=== PATIENT | male | born 1955 | race Two or more races ===

== ENCOUNTER 2020-03-14 13:45 | Emergency (ER) | payer MEDICARE, OTHER, SELFPAY ==
[2020-03-14 14:10] VITALS: BP 180/67; PULSE 64; RESP 16; TEMP 36.9; O2SAT 97; BMI 27.4
--- NOTE | 2020-03-14 14:56 | XR_ITS ---
EXAMINATION: XR TOES, LEFT CLINICAL INFORMATION: Left toe cellulitis. Question osteomyelitis. COMPARISON: 08/18/2016 TECHNIQUE: 3 views of the left toes were obtained. FINDINGS: There is no fracture or dislocation. No osseous erosion. Joint spaces are maintained. The soft tissues are unremarkable. No soft tissue gas. XR/XR toe LT min 2V IMPRESSION: No acute osseous abnormality. No osseous erosion.
[2020-03-14 15:37] LABS: Basophils Percent Auto 0.5 % (0-2); Eosinophils Absolute Auto 0.4 X10*3/uL (0.0-0.4); Eosinophils Percent Auto 4.4 % (0-4); Hematocrit 41.8 % (42-52); Hemoglobin 13.5 g/dl (14.0-18.0); Imm Gran Abs Auto 0.03 X10*3/uL (0.00-0.03); Imm Gran Pct Auto 0.4 % (0.0-0.4); Lymphocytes Absolute Auto 1.6 X10*3/uL (1.2-4.9); Lymphocytes Percent Auto 19.4 % (20-40); MANUAL DIFF FLAG NO; Mean Corpuscular HGB Conc 32.3 g/dl (31.0-36.0); Mean Corpuscular Hemoglobin 26.8 pg (27.0-33.0); Mean Corpuscular Volume 82.9 fL (80-98); Mean Platelet Volume 11.2 fL (9.4-12.4); Monocytes Absolute Auto 0.6 X10*3/uL (0.1-1.2); Neutrophils Absolute Auto 5.6 X10*3/uL (2.0-8.3); Neutrophils Percent Auto 68.3 % (45-73); Platelet Count 182 X10*3/uL (160-400); Red Blood Count 5.04 X10*6/uL (4.60-5.80); Red Cell Distribution Width 13.6 % (11.0-16.0); White Blood Count 8.2 X10*3/uL (4.8-10.8)
[2020-03-14] MEDS: oxyCODONE HCl Immed Release 5 MG TABLET PO (15:53)
[2020-03-14 16:00] LABS: C Reactive Protein 0.29 mg/dL (< or = 0.50)
[2020-03-14 16:10] LABS: Alanine Aminotransferase 12 U/L (0-40); Albumin Level 4.4 g/dL (3.5-5.0); Alkaline Phosphatase 79 U/L (39-117); Anion Gap 14 (12-20); Aspartate Amino Transferase 17 U/L (5-37); Bilirubin Direct 0.2 mg/dL (0.0-0.5); Bilirubin Total 0.4 mg/dL (0.0-1.0); Blood Urea Nitrogen 17 mg/dL (9-16); Calcium 9.5 mg/dL (8.4-10.2); Carbon Dioxide 28 mmol/L (22-29); Chloride 100 mmol/L (96-108); Creatinine Clr Calc Pharmacy 67.4; Estimated Glomerular Filt Rate > 60; Glucose Random 156 mg/dL (60-115); Magnesium 1.4 mg/dL (1.6-2.6); Potassium 4.7 mmol/l (3.3-5.1); Sodium 137 mmol/L (135-145); Total Protein 7.8 g/dL (6.5-8.0)
--- NOTE | 2020-03-14 16:21 | ED_ITS ---
HPI - Extremity Injury (Lower) General Chief Complaint: Extremity Injury, Lower Stated Complaint: lt ft infection Time Seen by Provider: 03/14/20 14:55 Source: patient Mode of arrival: ambulatory Limitations: no limitations History of Present Illness HPI Narrative: 65yoM c PMHx of diabetes, coronary artery disease that was stented and open toe wound presenting to the ED with complaints of worsening pain to the open toe wound. Reports he seen a doctor approximately 1-2 weeks ago who removed his nail and he reports that now he feels worsening symptoms despite taking tramadol as prescribed. He also reports that he was prescribed 2 bottles of Keflex which he completed and still no improvement. Denies any feve rs or any other symptoms complaints or concerns at this time. Related Data Previous Rx's Medication Instructions Recorded cephalexin [Keflex] 500 mg PO Q6H 10 Days #40 cap 03/14/20 doxycycline monohydrate 100 mg PO BID 10 Days #20 cap 03/14/20 oxycodone-acetaminophen [Percocet] 1 tab PO Q6H PRN #15 tab 03/14/20 Allergies Allergy/AdvReac Type Severity Reaction Status Date / Time No Known Allergies Allergy Unverified 12/13/19 15:31 [No Known Allergies*] Review of Systems Review of Systems: Constitutional :No Fever, No Chills, No Fatigue, No Malaise Musculoskeletal : + joint painswelling, No Myalgias Skin : + Skin Wound, No rash Neuro : No Weakness, No Numbness, No Paresthesias Heme/Lymph: No Lymphadenopathy Yes all other systems are reviewed and are negat [facility] Past Medical History Attestation statement: The following information was validated with the patient. Medical History Diabetes Surgical History Stented coronary artery Social History Social History Advance Directives: No Advance Directives Information Provided: No Physical Exam Vital Signs: Vital Signs: Last Vital Signs Temp 98.4 F 03/14/20 14:10 Pulse 64 03/14/20 14:10 Resp 16 03/14/20 14:10 BP 180/67 H 03/14/20 14:10 Pulse Ox 97 03/14/20 14:10 Body Mass Index 27.4 vital signs have been reviewed as normal and appeared to be correct. Blood pressure normal. Heart rate normal. Respiration rate normal. Temperature normal. Oxygen saturation normal. Appearance: Alert. Oriented X3. No acute distress. Head: Normal external exam. Normocephalic. Eyes: PERRLA. EOMI. Conjunctiva and sclera normal. Eyelids normal. ENT: Pharynx normal. Uvula midline. Moist mucous membranes. Neck: Normal inspection. Neck supple. FROM. No adenopathy. No meningeal signs. CVS: Normal heart rate and rhythm. Heart sound normal. No murmurs noted. Pulses normal throughout. Respiratory: No respiratory distress. Painless inspiration. Breath sounds normal. No wheezes/rales/rhonchi noted. Chest nontender. No accessory muscle usage noted or decreased air movement noted. Back: Full range of motion noted. Skin: Skin warm and dry. Normal skin color. Normal skin turgor. No rashes/ lesions/lacerations noted. Extremities: No lower extremity edema. Left 4th toe c nail removed c wound c moderate tenderness to palpation and erythema. No fluctuance or streaking noted or foreign bodies. Otherwise all other Extremities exhibit normal range of motion and nontender. Neuro: Oriented X 3. No motor deficit. No sensory deficit. Reflexes normal. Course Course Course Narrative: 16PM 65yoM c PMHx of diabetes, coronary artery disease that was stented and open toe wound presenting to the ED with complaints of worsening pain to the open toe wound despite taking 2 courses of Keflex. - Concern for osteomyelitis versus cellulitis. - Plan: Labs, Blood cultures, and x-ray. Will also give 5 mg of oxycodone. Reevaluation(s) Reevaluation #1: - patient magnesium level at 1.4 otherwise all other labs are within normal limits.X-ray of left foot/toe revealed no osseous erosion therefore not consistent with osteomyelitis at this time and no soft tissue gas. - therefore will replace the patient's magnesium with p.o. magnesium and instructions to follow-up with his primary care provider to have his levels recheck in a few days will start the patient on doxycycline and another course of Keflex and give a short script for pain medication instructions to return if any new or worsening symptoms with a referral to Wound Care, licensed therapist and will involve Case Management for [facility]. Patient understands and agrees with plan. Time: 17:29 MDM - Extremity Injury (Lower) Medical Records Attestation: I reviewed the patient's medical records. Lab Data Attestation: I reviewed the patient's lab results. Result diagrams: 03/14/20 15:29 03/14/20 15:29 Labs: Lab Results 03/14/20 03/14/20 03/14/20 Range/Units 15:28 15:28 15:29 WBC 8.2 (4.8-10.8) X10*3/uL RBC 5.04 (4.60-5.80) X10*6/uL Hgb 13.5 L (14.0-18.0) g/dl Hct 41.8 L (42-52) % MCV 82.9 (80-98) fL MCH 26.8 L (27.0-33.0) pg MCHC 32.3 (31.0-36.0) g/dl RDW 13.6 (11.0-16.0) % Plt Count 182 (160-400) X10*3/uL MPV 11.2 (9.4-12.4) fL Immature Gran % (Auto) 0.4 (0.0-0.4) % Neut % (Auto) 68.3 (45-73) % Lymph % (Auto) 19.4 L (20-40) % [place] % (Auto) 7.0 (2-11) % Eos % (Auto) 4.4 H (0-4) % Baso % (Auto) 0.5 (0-2) % Lymph # (Auto) 1.6 (1.2-4.9) X10*3/uL [place] # (Auto) 0.6 (0.1-1.2) X10*3/uL Eos # (Auto) 0.4 (0.0-0.4) X10*3/uL Baso # (Auto) 0.0 (0.0-0.2) X10*3/uL Abs Immat Gran (auto) 0.03 (0.00-0.03) X10*3/uL Absolute Neuts (auto) 5.6 (2.0-8.3) X10*3/uL Absolute Nucleated RBC 0.000 (0.0-0.012) X10*3/uL Nucleated RBC % (auto) 0.0 (0.0-0.2) /100WBC ESR 10 (0-15) MM/HR Hold Blue Top Sodium (135-145) mmol/L Potassium (3.3-5.1) mmol/l Chloride (96-108) mmol/L Carbon Dioxide (22-29) mmol/L Anion Gap (12-20) BUN (9-16) mg/dL Creatinine (0.5-1.4) mg/dL Estim Creat Clear Calc Estimated GFR Random Glucose (60-115) mg/dL Calcium (8.4-10.2) mg/dL Magnesium (1.6-2.6) mg/dL Total Bilirubin (0.0-1.0) mg/dL Direct Bilirubin (0.0-0.5) mg/dL AST (5-37) U/L ALT (0-40) U/L Alkaline Phosphatase (39-117) U/L C-Reactive Protein 0.29 (< or = 0.50) mg/dL Total Protein (6.5-8.0) g/dL Albumin (3.5-5.0) g/dL 03/14/20 03/14/20 Range/Units 15:29 15:29 WBC (4.8-10.8) X10*3/uL RBC (4.60-5.80) X10*6/uL Hgb (14.0-18.0) g/dl Hct (42-52) % MCV (80-98) fL MCH (27.0-33.0) pg MCHC (31.0-36.0) g/dl RDW (11.0-16.0) % Plt Count (160-400) X10*3/uL MPV (9.4-12.4) fL Immature Gran % (Auto) (0.0-0.4) % Neut % (Auto) (45-73) % Lymph % (Auto) (20-40) % [place] % (Auto) (2-11) % Eos % (Auto) (0-4) % Baso % (Auto) (0-2) % Lymph # (Auto) (1.2-4.9) X10*3/uL [place] # (Auto) (0.1-1.2) X10*3/uL Eos # (Auto) (0.0-0.4) X10*3/uL Baso # (Auto) (0.0-0.2) X10*3/uL Abs Immat Gran (auto) (0.00-0.03) X10*3/uL Absolute Neuts (auto) (2.0-8.3) X10*3/uL Absolute Nucleated RBC (0.0-0.012) X10*3/uL Nucleated RBC % (auto) (0.0-0.2) /100WBC ESR (0-15) MM/HR Hold Blue Top SEE NOTE Sodium 137 (135-145) mmol/L Potassium 4.7 (3.3-5.1) mmol/l Chloride 100 (96-108) mmol/L Carbon Dioxide 28 (22-29) mmol/L Anion Gap 14 (12-20) BUN 17 H (9-16) mg/dL Creatinine 1.01 (0.5-1.4) mg/dL Estim Creat Clear Calc 67.4 Estimated GFR > 60 Random Glucose 156 H (60-115) mg/dL Calcium 9.5 (8.4-10.2) mg/dL Magnesium 1.4 L* (1.6-2.6) mg/dL Total Bilirubin 0.4 (0.0-1.0) mg/dL Direct Bilirubin 0.2 (0.0-0.5) mg/dL AST 17 (5-37) U/L ALT 12 (0-40) U/L Alkaline Phosphatase 79 (39-117) U/L C-Reactive Protein (< or = 0.50) mg/dL Total Protein 7.8 (6.5-8.0) g/dL Albumin 4.4 (3.5-5.0) g/dL Imaging Data Left foot xray: Attestation: I personally reviewed and interpreted this imaging study as follows: Radiologist's impression: IMPRESSION: No acute osseous abnormality. No osseous erosion. Discharge Plan Discharge Clinical Impression: Hypomagnesemia Cellulitis Qualifiers: Site of cellulitis: extremity Site of cellulitis of extremity: toe Laterality: left Qualified Code(s): L03.032 - Cellulitis of left toe Open toe wound Qualifiers: Encounter type: initial encounter Qualified Code(s): S91.109A - Unspecified open wound of unspecified toe(s) without damage to nail, initial encounter Patient Disposition: Home, Self-Care Instructions: Wound Infection (ED), Cellulitis (ED), Wound Healing and Your Diet (ED), Hypomagnesemia (ED), Acute Wounds (ED) Prescriptions: New doxycycline monohydrate 100 mg capsule 100 mg PO BID 10 Days Qty: 20 RF: 0 cephalexin [Keflex] 500 mg capsule 500 mg PO Q6H 10 Days Qty: 40 RF: 0 oxycodone-acetaminophen [Percocet] 5-325 mg tablet 1 tab PO Q6H PRN (Reason: pain) Qty: 15 RF: 0 Referrals: Noemy Squires MD [Primary Care Provider] - 2 days (Recheck magnesium within 2-3 days) Saritha Wyman PA [Physician Pest Control Applicator] - 2 days Freeman Anderson [Physician] - 2 days Stand Alone Forms: Work/School Release Print Language: Lithuanian
[2020-03-14 16:31] LABS: Erythrocyte Sedimentation Rate 10 MM/HR (0-15)
[2020-03-14] MEDS: Doxycycline Hyclate 100 MG in 0.9 % Sodium Chloride 250 ML 166.67 MG IV (16:55)
[2020-03-14] MEDS: Magnesium Oxide 400 MG TABLET PO (16:57)
--- NOTE | 2020-03-15 10:54 | MHC.CM.ED ---
Patient already discharged from ER. Received consult requesting referral to [facility] from RICK Callejas. [facility]. Britta CABRERA aware. Face to face completed and signed.
== END 2020-03-14 18:45 | disposition home or self-care (01) ==
PROVIDERS: Physician Assistant Medical; Emergency Provider Emergency Medicine Emergency Medical Services; PCP Internal Medicine
DX: L03.032 Cellulitis of left toe (principal); S91.205A Unspecified open wound of left lesser toe(s) with damage to nail, initial encounter; X58.XXXA Exposure to other specified factors, initial encounter; E83.42 Hypomagnesemia; E11.9 Type 2 diabetes mellitus without complications; Y93.9 Activity, unspecified; Y92.9 Unspecified place or not applicable; Y99.9 Unspecified external cause status
CPT/HCPCS: 36415; 73660; 80048; 80076; 83735; 85025; 85652; 86140; 87040; 96365; 96366; 99283; 99284

== ENCOUNTER 2020-04-08 10:10 | Outpatient (RCR) | payer MEDICARE, OTHER, SELFPAY | END 2020-04-24 15:17 | disposition home or self-care (01) | LOC: HO.WCC 10:10 | PROVIDERS: Visit Provider Physician Assistant | DX: E11.621 Type 2 diabetes mellitus with foot ulcer (principal); E11.51 Type 2 diabetes mellitus with diabetic peripheral angiopathy without gangrene; I70.245 Atherosclerosis of native arteries of left leg with ulceration of other part of foot; L97.521 Non-pressure chronic ulcer of other part of left foot limited to breakdown of skin; E11.65 Type 2 diabetes mellitus with hyperglycemia; E11.40 Type 2 diabetes mellitus with diabetic neuropathy, unspecified; I10 Essential (primary) hypertension; Z94.0 Kidney transplant status; Z79.899 Other long term (current) drug therapy; Z95.9 Presence of cardiac and vascular implant and graft, unspecified | CPT/HCPCS: 97597; 99213; 99214 ==

== ENCOUNTER 2020-04-22 13:20 | Outpatient (REF) | payer MEDICARE, OTHER, SELFPAY ==
--- NOTE | 2020-04-22 | US_ITS ---
EXAMINATION: ULTRASOUND ARTERIAL LEFT LOWER EXTREMITY EXAMINATIO CLINICAL INFORMATION: Foot ulcer TECHNIQUE: Left lower extremity duplex Doppler techniques with wave form analysis and measurement of velocities in the common femoral, profunda femoral, superficial femoral, popliteal and tibial arteries. The study was performed only at rest. COMPARISON: None FINDINGS: * LEFT LEG: Left direct duplex Doppler findings: There is evidence of atherosclerotic disease with vessel wall calcification. The left superficial femoral artery is occluded. The posterior tibial artery is severely diseased with luminal narrowing. Common femoral artery: 153 cm/s, Diastolic flow reversal: Yes * Superficial femoral artery: The left proximal and mid superficial femoral artery is occluded. There is monophasic flow seen in the distal left superficial femoral artery which appears to reconstitute from a collateral. Peak systolic velocity is 37 cm/s with monophasic flow. * Popliteal artery: 66 cm/s, Diastolic flow reversal: No * Posterior tibial artery: 79 cm/s, Diastolic flow reversal: No * Profunda: Peak systolic velocity 212 cm/s. Diastolic flow reversal: No US/US arterial duplex LE LT IMPRESSION: Occluded left proximal and mid superficial femoral artery. The distal left superficial femoral artery appears to reconstitute via collateral. Patent popliteal and severely diseased posterior tibial artery. Elevated peak systolic velocity in the left profunda.
== END 2020-04-22 13:21 | disposition home or self-care (01) ==
LOC: HO.US 13:20
PROVIDERS: Visit Provider Physician Assistant
DX: I70.245 Atherosclerosis of native arteries of left leg with ulceration of other part of foot (principal)
CPT/HCPCS: 93926

== ENCOUNTER 2020-08-21 22:07 | Emergency (ER) | payer MEDICARE, BC, SELFPAY ==
--- NOTE | ~2020-08-21 | CT_ITS ---
EXAMINATION: CT HEAD WITHOUT CONTRAST CLINICAL INFORMATION: Right MCA acute CVA. COMPARISON: CT IAC 09/18/2012 TECHNIQUE: Contiguous axial imaging was performed from the skull base to vertex without intravenous administration of contrast. This CT examination was performed using dose optimization techniques as appropriate, variously including the following: *Automated exposure control *Adjustment of mA and/or kV according to patient size (this includes techniques or standardized protocols for targeted exams where dose is matched to indication/reason for exam; i.e. extremities or head) *Use of iterative reconstruction technique DLP: 1237 mGy-cm FINDINGS: There is no evidence of intra-axial, extra-axial bleed, masses or midline shift. There is no acute infarction. However there is a subtle hypodensity in the left basal ganglia/internal capsule likely lacunar infarct of indeterminate age. No abnormal mass effect or midline shift is seen. Mcallister to white matter differentiation is well preserved. No extra-axial fluid collections are identified. The ventricles are normal in size. There is no abnormal attenuation within the brain parenchyma. The osseous structures and soft tissues are normal. The mastoid air cells and visualized portions of the paranasal sinuses are well aerated. CT/CT head for stroke IMPRESSION: No acute intracranial process seen. Small focal lacunar infarct left anterior limb internal capsule of indeterminate age. Results were called by phone immediately to Dr. Dayton Mcpherson in the ED at 10:22 PM
--- NOTE | 2020-08-21 22:11 | ED.NEUROSD ---
HPI - Neuro Symptoms/Deficit General Chief Complaint: Neuro Symptoms/Deficit Stated Complaint: STROKE Time Seen by Provider: 08/21/20 22:10 Source: patient and EMS Mode of arrival: EMS Limitations: no limitations History of Present Illness HPI Narrative: Patient is 65 years old male with past medical history of end-stage renal disease secondary to diabetic nephropathy status post LUKT 2015, CAD status post CABG 2012, right carotid endarterectomy, HFpEF, treated hepatitis-C, peripheral artery disease with gangrene of left foot status post thrombectomy of left femoral to peroneal artery bypass done on 08/20 1 discharge while at [facility] till 14:00 today and discharged went home to his sister's house at 18:00 had a long day and at 20:00 was feeling slurred speech and weak so he took 10 units of Humalog insulin thinking of moving blood sugar is high. When EMS reached blood sugar was 65. Patient was feeling overall weak more on the left side EMS noticed left facial droop on arrival patient speech was back to normal and no focal deficit noticed no facial dissymmetry on arrival Related Data Previous Rx's Medication Instructions Recorded cephalexin [Keflex] 500 mg PO Q6H 10 Days #40 cap 03/14/20 doxycycline monohydrate 100 mg PO BID 10 Days #20 cap 03/14/20 oxycodone-acetaminophen [Percocet] 1 tab PO Q6H PRN #15 tab 03/14/20 Allergies Allergy/AdvReac Type Severity Reaction Status Date / Time No Known Allergies Allergy Unverified 12/13/19 15:31 [No Known Allergies*] Review of Systems Review of Systems: Constitutional : No Weight loss, No Fever, No Chills ENT/Mouth : No sore throat, No Rhinorrhea Eyes: No Eye Pain, No Swelling Cardiovascular : No Chest Pain, no palpitations Respiratory : No Cough, No Sputum, no shortness of breath Gastrointestinal : no Nausea, No Vomiting, No Diarrhea, No abdominal Pain, no black stools Genitourinary : No Dysuria, No Urinary Frequency Musculoskeletal : No joint pain, No Myalgias, No Joint Swelling Skin : No Skin Lesions, No rash Neuro : ++ Weakness, No Numbness, No Dizziness, No Headache Psych : No Anxiety/Panic, No Depression Heme/Lymph: No Bruising, No Lymphadenopathy Endocrine : No Polyuria, No Polydipsia All other systems reviewed and are negative PMFSH Past Medical History Medical History Diabetes Surgical History Stented coronary artery Social History Social History Advance Directives: No Advance Directives Information Provided: No Physical Exam Vital Signs: Vital Signs: Last Vital Signs Temp 98.2 F 08/21/20 22:22 Pulse 100 08/22/20 00:32 Resp 16 08/22/20 00:32 BP 127/72 08/22/20 00:32 Pulse Ox 93 08/22/20 00:32 Body Mass Index 29.0 Appearance: Alert. Oriented X3. No acute distress. Eyes: PERRLA, No Nystagmus ENT: Pharynx normal. Oral Mucosa moist Neck: Normal inspection. Neck supple. CVS: Normal heart rate and rhythm. Pulses normal. Respiratory: No respiratory distress. Equal air entry bilateral, no wheezing/rales/rhonchi Abdomen: Soft and nontender. Bowel sounds are present, no mass palpable, no CVA tenderness Skin: Skin warm and dry. Normal skin color. Normal skin turgor. Extremitie: No calf tenderness left leg in Pablo wrap dressing slight edema Neuro: Oriented X 3. No motor deficit. No sensory deficit.No cerebellar signs , cranial nerves II-XII intact no pronator drift speech is normal no facial asymmetry MDM - Neuro Symptoms/Deficit MDM Narrative Medical decision making narrative: Patient with acute confusion with weakness according to family more generalized than one-sided patient to get x-ray Humalog 10 units and blood sugar dropped further in the ER patient had food p.o. fluids and half ampule of dextrose blood sugar now is 121 and patient is feeling much better back to baseline will discharge patient home. CT scan of the head is negative for any acute infarct Lab Data Attestation: I reviewed the patient's lab results. Result diagrams: 08/21/20 22:39 08/21/20 22:39 Labs: Lab Results 08/21/20 08/21/20 08/21/20 Range/Units 22:18 22:39 22:39 WBC 9.3 (4.8-10.8) X10*3/uL RBC 2.82 L D (4.60-5.80) X10*6/uL Hgb 7.8 L D (14.0-18.0) g/dl Hct 24.1 L D (42-52) % MCV 85.5 (80-98) fL MCH 27.7 (27.0-33.0) pg MCHC 32.4 (31.0-36.0) g/dl RDW 15.1 (11.0-16.0) % Plt Count 286 D (160-400) X10*3/uL MPV 10.7 (9.4-12.4) fL Immature Gran % (Auto) 1.7 H (0.0-0.4) % Neut % (Auto) 67.2 (45-73) % Lymph % (Auto) 19.7 L (20-40) % [place] % (Auto) 9.1 (2-11) % Eos % (Auto) 2.2 (0-4) % Baso % (Auto) 0.1 (0-2) % Lymph # (Auto) 1.8 (1.2-4.9) X10*3/uL [place] # (Auto) 0.8 (0.1-1.2) X10*3/uL Eos # (Auto) 0.2 (0.0-0.4) X10*3/uL Baso # (Auto) 0.0 (0.0-0.2) X10*3/uL Abs Immat Gran (auto) 0.16 H (0.00-0.03) X10*3/uL Absolute Neuts (auto) 6.2 (2.0-8.3) X10*3/uL Absolute Nucleated RBC 0.000 (0.0-0.012) X10*3/uL Nucleated RBC % (auto) 0.0 (0.0-0.2) /100WBC PT (10.8-13.0) SEC INR (0.9-1.1) APTT (24.1-38.0) SEC Coag Specimen Comment Sodium 138 (135-145) mmol/L Potassium 3.7 (3.3-5.1) mmol/L Chloride 103 (96-108) mmol/L Carbon Dioxide 24 (22-29) mmol/L Anion Gap 15 (12-20) BUN 18 H (9-16) mg/dL Creatinine 0.83 (0.5-1.4) mg/dL Estim Creat Clear Calc 84.2 Estimated GFR > 60 POC Glucose 65 (60-115) mg/dL Random Glucose 57 L* (60-115) mg/dL Calcium 8.8 D (8.4-10.2) mg/dL Troponin I High Sens (<3.5-35.0) ng/L 08/21/20 08/21/20 08/21/20 Range/Units 22:39 22:39 22:40 WBC (4.8-10.8) X10*3/uL RBC (4.60-5.80) X10*6/uL Hgb (14.0-18.0) g/dl Hct (42-52) % MCV (80-98) fL MCH (27.0-33.0) pg MCHC (31.0-36.0) g/dl RDW (11.0-16.0) % Plt Count (160-400) X10*3/uL MPV (9.4-12.4) fL Immature Gran % (Auto) (0.0-0.4) % Neut % (Auto) (45-73) % Lymph % (Auto) (20-40) % [place] % (Auto) (2-11) % Eos % (Auto) (0-4) % Baso % (Auto) (0-2) % Lymph # (Auto) (1.2-4.9) X10*3/uL [place] # (Auto) (0.1-1.2) X10*3/uL Eos # (Auto) (0.0-0.4) X10*3/uL Baso # (Auto) (0.0-0.2) X10*3/uL Abs Immat Gran (auto) (0.00-0.03) X10*3/uL Absolute Neuts (auto) (2.0-8.3) X10*3/uL Absolute Nucleated RBC (0.0-0.012) X10*3/uL Nucleated RBC % (auto) (0.0-0.2) /100WBC PT 12.4 (10.8-13.0) SEC INR 1.0 (0.9-1.1) APTT 29.2 (24.1-38.0) SEC Coag Specimen Comment DELAY Sodium (135-145) mmol/L Potassium (3.3-5.1) mmol/L Chloride (96-108) mmol/L Carbon Dioxide (22-29) mmol/L Anion Gap (12-20) BUN (9-16) mg/dL Creatinine (0.5-1.4) mg/dL Estim Creat Clear Calc Estimated GFR POC Glucose 58 L* (60-115) mg/dL Random Glucose (60-115) mg/dL Calcium (8.4-10.2) mg/dL Troponin I High Sens 54.1 H* (<3.5-35.0) ng/L 08/21/20 08/22/20 08/22/20 Range/Units 22:54 00:14 00:52 WBC (4.8-10.8) X10*3/uL RBC (4.60-5.80) X10*6/uL Hgb (14.0-18.0) g/dl Hct (42-52) % MCV (80-98) fL MCH (27.0-33.0) pg MCHC (31.0-36.0) g/dl RDW (11.0-16.0) % Plt Count (160-400) X10*3/uL MPV (9.4-12.4) fL Immature Gran % (Auto) (0.0-0.4) % Neut % (Auto) (45-73) % Lymph % (Auto) (20-40) % [place] % (Auto) (2-11) % Eos % (Auto) (0-4) % Baso % (Auto) (0-2) % Lymph # (Auto) (1.2-4.9) X10*3/uL [place] # (Auto) (0.1-1.2) X10*3/uL Eos # (Auto) (0.0-0.4) X10*3/uL Baso # (Auto) (0.0-0.2) X10*3/uL Abs Immat Gran (auto) (0.00-0.03) X10*3/uL Absolute Neuts (auto) (2.0-8.3) X10*3/uL Absolute Nucleated RBC (0.0-0.012) X10*3/uL Nucleated RBC % (auto) (0.0-0.2) /100WBC PT (10.8-13.0) SEC INR (0.9-1.1) APTT (24.1-38.0) SEC Coag Specimen Comment Sodium (135-145) mmol/L Potassium (3.3-5.1) mmol/L Chloride (96-108) mmol/L Carbon Dioxide (22-29) mmol/L Anion Gap (12-20) BUN (9-16) mg/dL Creatinine (0.5-1.4) mg/dL Estim Creat Clear Calc Estimated GFR POC Glucose 80 74 77 (60-115) mg/dL Random Glucose (60-115) mg/dL Calcium (8.4-10.2) mg/dL Troponin I High Sens (<3.5-35.0) ng/L 08/22/20 Range/Units 01:13 WBC (4.8-10.8) X10*3/uL RBC (4.60-5.80) X10*6/uL Hgb (14.0-18.0) g/dl Hct (42-52) % MCV (80-98) fL MCH (27.0-33.0) pg MCHC (31.0-36.0) g/dl RDW (11.0-16.0) % Plt Count (160-400) X10*3/uL MPV (9.4-12.4) fL Immature Gran % (Auto) (0.0-0.4) % Neut % (Auto) (45-73) % Lymph % (Auto) (20-40) % [place] % (Auto) (2-11) % Eos % (Auto) (0-4) % Baso % (Auto) (0-2) % Lymph # (Auto) (1.2-4.9) X10*3/uL [place] # (Auto) (0.1-1.2) X10*3/uL Eos # (Auto) (0.0-0.4) X10*3/uL Baso # (Auto) (0.0-0.2) X10*3/uL Abs Immat Gran (auto) (0.00-0.03) X10*3/uL Absolute Neuts (auto) (2.0-8.3) X10*3/uL Absolute Nucleated RBC (0.0-0.012) X10*3/uL Nucleated RBC % (auto) (0.0-0.2) /100WBC PT (10.8-13.0) SEC INR (0.9-1.1) APTT (24.1-38.0) SEC Coag Specimen Comment Sodium (135-145) mmol/L Potassium (3.3-5.1) mmol/L Chloride (96-108) mmol/L Carbon Dioxide (22-29) mmol/L Anion Gap (12-20) BUN (9-16) mg/dL Creatinine (0.5-1.4) mg/dL Estim Creat Clear Calc Estimated GFR POC Glucose 121 H (60-115) mg/dL Random Glucose (60-115) mg/dL Calcium (8.4-10.2) mg/dL Troponin I High Sens (<3.5-35.0) ng/L ECG Data Attestation: I personally reviewed and interpreted this ECG as follows: Interpretation: Normal sinus rhythm LVH with strain pattern heart rate 93 beats per minute no acute ST T wave changes no acute ischemia NIH Stroke Scale Internal: Initial- Upon Arrival Level of Consciousness: Alert Level of Consciousness Questions: Answers both questions correctly Level of Consciousness Commands: Performs both tasks correctly Best Gaze: Normal Visual: No visual loss Facial Palsy: Normal Motor Arm (Right): No drift Motor Arm (Left): No drift Motor Leg (Right): No drift Motor Leg (Left): No drift Limb Ataxia: Absent Sensory: Normal Best Language: No aphasia Dysarthia: Normal Extinction and Inattention: No abnormality Score: 0 Discharge Plan Discharge Clinical Impression: Hypoglycemia associated with diabetes Patient Disposition: Home, Self-Care Instructions: Hypoglycemia in a Person with Diabetes (ED) Additional Instructions: Eat well on time Check blood sugar every 6 hours for next 24 hours Do not take insulin if it is less than 100 Prescriptions: No Action doxycycline monohydrate 100 mg capsule 100 mg PO BID 10 Days Qty: 20 RF: 0 cephalexin [Keflex] 500 mg capsule 500 mg PO Q6H 10 Days Qty: 40 RF: 0 oxycodone-acetaminophen [Percocet] 5-325 mg tablet 1 tab PO Q6H PRN (Reason: pain) Qty: 15 RF: 0
--- NOTE | 2020-08-21 22:12 | ECG_ITS ---
Test Reason : STROKE PROTOCOL Blood Pressure : / mmHG Vent. Rate : 093 BPM Atrial Rate : 093 BPM P-R Int : 132 ms QRS Dur : 076 ms QT Int : 324 ms P-R-T Axes : 036 -03 175 degrees QTc Int : 402 ms Sinus rhythm with occasional Premature ventricular complexes Left ventricular hypertrophy with repolarization abnormality Abnormal ECG When compared with ECG of 14-JUN-2002 03:47, Premature ventricular complexes are now Present ST now depressed in Anterior leads ST no longer elevated in Lateral leads T wave inversion now evident in Anterolateral leads Referred By: Dayton Mcpherson Electronically Signed By:ANGEL LLAMAS
[2020-08-21 22:22] VITALS: BP 124/62; PULSE 93; RESP 16; TEMP 36.8; O2SAT 96; BMI 29.0
[2020-08-21 22:45] LABS: MANUAL DIFF FLAG NO
[2020-08-21 22:50] LABS: Basophils Percent Auto 0.1 % (0-2); Eosinophils Absolute Auto 0.2 X10*3/uL (0.0-0.4); Eosinophils Percent Auto 2.2 % (0-4); Hematocrit 24.1 % (42-52); Hemoglobin 7.8 g/dl (14.0-18.0); Imm Gran Abs Auto 0.16 X10*3/uL (0.00-0.03); Imm Gran Pct Auto 1.7 % (0.0-0.4); Lymphocytes Absolute Auto 1.8 X10*3/uL (1.2-4.9); Lymphocytes Percent Auto 19.7 % (20-40); Mean Corpuscular HGB Conc 32.4 g/dl (31.0-36.0); Mean Corpuscular Hemoglobin 27.7 pg (27.0-33.0); Mean Corpuscular Volume 85.5 fL (80-98); Mean Platelet Volume 10.7 fL (9.4-12.4); Monocytes Absolute Auto 0.8 X10*3/uL (0.1-1.2); Monocytes Percent Auto 9.1 % (2-11); Neutrophils Absolute Auto 6.2 X10*3/uL (2.0-8.3); Neutrophils Percent Auto 67.2 % (45-73); Platelet Count 286 X10*3/uL (160-400); Red Blood Count 2.82 X10*6/uL (4.60-5.80); Red Cell Distribution Width 15.1 % (11.0-16.0); White Blood Count 9.3 X10*3/uL (4.8-10.8)
--- NOTE | 2020-08-21 22:58 | PC.NURSE ---
Addendum entered by Muriel Leos 08/21/20 23:04: Correction. Pt states he took 10 units of Humalog @ 1999. Original Note: IV established, labs obtained. Pt explains that while at his sisters @ 1800, his speech became slurred and he started feeling unwell. Pt states tht he tried to check his POC but was unable to work his glucometer, he assumed his blood sugar was high so he gave himself 10 units of fast acting insulin. Pts condition continued to worsen, family calling EMS. POC upon arrival noted to be 65 mg/dl. Pt provided with food/drink, blood sugar increased to 80 mg/dl. MD aware. Continue to monitor.
[2020-08-21 23:00] LABS: Glucose, Whole Blood 80 mg/dL (60-115)
[2020-08-21 23:00] LABS: Glucose, Whole Blood 58 mg/dL (60-115)
[2020-08-21 23:00] LABS: Glucose, Whole Blood 65 mg/dL (60-115)
--- NOTE | 2020-08-21 23:00 | PC.NURSE ---
Speech noted to be clear upon arrival by EMS despite borderline hypoglycemia. Pt reports relief of all symptoms at this time including weakness to left arm.
[2020-08-21 23:11] LABS: Anion Gap 15 (12-20); Blood Urea Nitrogen 18 mg/dL (9-16); Calcium 8.8 mg/dL (8.4-10.2); Carbon Dioxide 24 mmol/L (22-29); Chloride 103 mmol/L (96-108); Creatinine Clr Calc Pharmacy 84.2; Estimated Glomerular Filt Rate > 60; Glucose Random 57 mg/dL (60-115); Potassium 3.7 mmol/L (3.3-5.1); Sodium 138 mmol/L (135-145)
[2020-08-21 23:13] LABS: Delay - Coag DELAY
[2020-08-21 23:20] LABS: Prothrombin Time 12.4 SEC (10.8-13.0)
[2020-08-21 23:23] LABS: Partial Thromboplastin Time 29.2 SEC (24.1-38.0)
[2020-08-21 23:39] LABS: Troponin-I High Sensitivity 54.1 ng/L (<3.5-35.0)
[2020-08-22 00:18] LABS: Glucose, Whole Blood 74 mg/dL (60-115)
--- NOTE | 2020-08-22 00:23 | PC.NURSE ---
Repeat POC noted to be 74 mg/dl. MD aware. Pt provided with food/drink. Pt requesting pain medication, reporting 10/10 pain to left leg. Pt aware of plan to DC home.
[2020-08-22] MEDS: Morphine Sulfate 4 MG/ML CARTRIDGE IVPUSH (00:28)
[2020-08-22] MEDS: ondansetron HCL 4 MG/2 ML VIAL IVPUSH (00:28)
[2020-08-22] MEDS: Acetaminophen 325 MG TABLET 650 MG PO (00:28)
[2020-08-22 00:32] VITALS: BP 127/72; PULSE 100; RESP 16; O2SAT 93
--- NOTE | 2020-08-22 00:37 | PC.NURSE ---
Pt medicated per MAY. Pt resting in bed, VSS. Continue to monitor.
[2020-08-22 00:57] LABS: Glucose, Whole Blood 77 mg/dL (60-115)
--- NOTE | 2020-08-22 01:02 | PC.NURSE ---
POC 77 mg/dl. Per MD, verbal order for 1/2 amp D50. Pt medicated per MAY. Pt aware of plan of care, continue to monitor.
[2020-08-22 01:18] LABS: Glucose, Whole Blood 121 mg/dL (60-115)
[2020-08-22 01:29] VITALS: BP 121/80; PULSE 89; RESP 16; O2SAT 98
[2020-08-22 13:52] LABS: Prothrombin Time Whole Bld POC 12.8 sec (11.1-13.5); ~PT, ~INR - Anti Coag Clinic 1.1 (0.9-1.1)
== END 2020-08-22 01:32 | disposition home or self-care (01) ==
PROVIDERS: Emergency Provider Internal Medicine
DX: E11.649 Type 2 diabetes mellitus with hypoglycemia without coma (principal); I25.10 Atherosclerotic heart disease of native coronary artery without angina pectoris; R47.81 Slurred speech; R29.810 Facial weakness; R41.0 Disorientation, unspecified; R29.700 NIHSS score 0; I12.0 Hypertensive chronic kidney disease with stage 5 chronic kidney disease or end stage renal disease; N18.6 End stage renal disease; E11.22 Type 2 diabetes mellitus with diabetic chronic kidney disease; Z79.899 Other long term (current) drug therapy; Z79.4 Long term (current) use of insulin
CPT/HCPCS: 36415; 70450; 80048; 82947; 84484; 85025; 85610; 85730; 93005; 96374; 96375; 99284; J2270; J2405

== ENCOUNTER 2021-06-05 08:48 | Emergency (ER) | payer MEDICARE, BC, SELFPAY ==
--- NOTE | 2021-06-05 | ECG_ITS ---
Test Reason : RIGHT ARM PAIN Blood Pressure : / mmHG Vent. Rate : 063 BPM Atrial Rate : 063 BPM P-R Int : 136 ms QRS Dur : 106 ms QT Int : 418 ms P-R-T Axes : 026 -09 152 degrees QTc Int : 427 ms Normal sinus rhythm Moderate voltage criteria for LVH, may be normal variant ( R in aVL , Andrews product ) T wave abnormality, consider lateral ischemia Abnormal ECG When compared with ECG of 21-AUG-2020 22:32, Premature ventricular complexes are no longer Present ST elevation has replaced ST depression in Anterior leads T wave inversion no longer evident in Anterior leads Referred By: Generic ED Physician Electronically Signed By:SUDHIR BELLA MD
[2021-06-05 09:12] VITALS: BP 152/82; PULSE 71; RESP 14; TEMP 36.7; O2SAT 95; BMI 29.2
[2021-06-05 10:40] VITALS: BP 152/82; PULSE 70; RESP 17; TEMP 36.6
[2021-06-05 10:53] LABS: MANUAL DIFF FLAG NO
[2021-06-05 10:59] LABS: Basophils Percent Auto 0.4 % (0-2); Eosinophils Absolute Auto 0.2 X10*3/uL (0.0-0.4); Eosinophils Percent Auto 2.1 % (0-4); Hematocrit 45.7 % (42.0-52.0); Hemoglobin 14.3 g/dl (14.0-18.0); Imm Gran Abs Auto 0.02 X10*3/uL (0.00-0.03); Imm Gran Pct Auto 0.3 % (0.0-0.4); Lymphocytes Absolute Auto 1.5 X10*3/uL (1.2-4.9); Mean Corpuscular HGB Conc 31.3 g/dl (31.0-36.0); Mean Corpuscular Hemoglobin 25.6 pg (27.0-33.0); Mean Corpuscular Volume 81.9 fL (80.0-98.0); Mean Platelet Volume 10.3 fL (9.4-12.4); Monocytes Absolute Auto 0.6 X10*3/uL (0.1-1.2); Monocytes Percent Auto 7.4 % (2-11); Neutrophils Absolute Auto 5.5 x10*3/uL (2.0-8.3); Neutrophils Percent Auto 70.8 % (45-73); Platelet Count 216 X10*3/uL (160-400); Red Blood Count 5.58 X10*6/uL (4.60-5.80); Red Cell Distribution Width 14.3 % (11.0-16.0); White Blood Count 7.7 X10*3/uL (4.8-10.8)
[2021-06-05 11:16] LABS: Alanine Aminotransferase 16 U/L (0-40); Albumin Level 4.3 g/dL (3.5-5.0); Alkaline Phosphatase 90 U/L (39-117); Anion Gap 12 (12-20); Aspartate Amino Transferase 13 U/L (5-37); Blood Urea Nitrogen 10 mg/dL (9-16); Calcium 9.7 mg/dL (8.4-10.2); Carbon Dioxide 24 mmol/L (22-29); Chloride 105 mmol/L (96-108); Creatinine Clr Calc Pharmacy 74.3; Estimated Glomerular Filt Rate > 60; Glucose Random 201 mg/dL (60-115); Potassium 4.1 mmol/L (3.3-5.1); Sodium 137 mmol/L (135-145); Total Protein 7.6 g/dL (6.5-8.0)
[2021-06-05 11:25] LABS: Troponin-I High Sensitivity 5.4 ng/L (<3.5-35.0)
[2021-06-05] MEDS: Morphine Sulfate 10 MG/ML CARTRIDGE 6 MG IM (11:57)
--- NOTE | 2021-06-05 12:16 | ED_ITS ---
HPI - Extremity Problem General Chief complaint: Extremity Injury, Upper Stated complaint: TINGLING DOWN R ARM Time Seen by Provider: 06/05/21 11:49 Source: patient and family Mode of arrival: ambulatory Limitations: no limitations History of Present Illness HPI Narrative: 66-year-old male right handed with a history of high blood pressure, diabetes with diabetic neuropathy, left lower extremity DVT on Eliquis, CABG x3, right renal transplant on tacrolimus (6yrs ago), right carotid endarterectomy, HFpEF,? treated hepatitis-C, peripheral artery disease here with reports of right arm pain which patient describes as shooting pain which starts in the shoulder and radiates down the arm with pins and needles sensation since May 19. Patient denies any injury or trauma. He was seen at [facility] Emergency Department on May 20 but the patient is unsure what his diagnosis is. He tells me that they (did labs, EKG, ?MRI shoulder). I sent him home with several days of morphine immediate release with the patient ran out of this medication. Patient tells me is a follow-up appointment the end of this month with a new primary care doctor. Related Data Previous Rx's Medication Instructions Recorded cephalexin 500 mg capsule (Keflex) 500 mg PO Q6H 10 Days #40 cap 03/14/20 doxycycline monohydrate 100 mg 100 mg PO BID 10 Days #20 cap 03/14/20 capsule oxycodone-acetaminophen 5 mg-325 1 tab PO Q6H PRN #15 tab 03/14/20 mg tablet (Percocet) magnesium oxide 400 mg (241.3 mg 400 mg PO DAILY #30 tab 06/05/21 magnesium) tablet morphine 15 mg immediate release 15 mg PO BID PRN #10 tab 06/05/21 tablet prednisone 20 mg tablet 40 mg PO DAILY #8 tab 06/05/21 Allergies Allergy/AdvReac Type Severity Reaction Status Date / Time No Known Allergies Allergy Verified 06/05/21 09:18 [No Known Allergies*] Review of Systems Review of Systems: Yes all other systems are reviewed and are negative Constitutional: Constitutional: Reports no additional constitutional complaints, Denies body ache(s), Denies chills, Denies fever(s), Denies headache(s) and Denies weakness Eyes: Eyes: Reports no additional eye complaints and Denies change in vision ENT: Reports system reviewed and no additional complaints, except as documented, Denies dizziness, Denies headache(s), Denies nasal congestion, Denies nasal discharge and Denies neck pain Cardiovascular: Cardiovascular: Reports no additional cardiovascular complaints, Denies chest pain, Denies leg edema and Denies dyspnea Respiratory: Respiratory: Reports no additional respiratory complaints, Denies cough and Denies dyspnea Gastrointestinal: Gastrointestinal: Reports no additional gastrointestinal complaints, Denies abdominal pain, Denies diarrhea, Denies nausea and Denies vomiting Genitourinary: Genitourinary: Denies urinary incontinence Musculoskeletal: Musculoskeletal: Reports no additional musculoskeletal complaints, Denies back pain, Denies arthralgias, Denies joint swelling, Denies neck pain, Denies numbness, Reports radiating pain into limb and Reports tingling Integumentary/Breasts: Skin/Breast: Reports system reviewed and no additional complaints, except as docu and Denies rash Neurologic: Reports system reviewed and no additional complaints, except as documented, Denies Abnormal speech present, Denies dizziness, Denies headache(s), Denies numbness, Reports tingling and Denies weakness PMFSH Past Medical History Attestation statement: The following information was validated with the patient. Source: old records reviewed and nursing notes reviewed Medical History Diabetes Hypertension Surgical History Stented coronary artery Social History Social History Advance Directives: Yes Advance Directives Information Provided: Yes Advance Directives on File: No Physical Exam Vital Signs: Vital Signs: Last Vital Signs Temp 98 F 06/05/21 10:40 Pulse 70 06/05/21 10:40 Resp 17 06/05/21 10:40 BP 152/82 H 06/05/21 10:40 Pulse Ox 95 06/05/21 09:12 BMI result Body Mass Index 29.2 Const: General: cooperative, healthy appearing, comfortable and no acute distress Orientation/consciousness: patient oriented x3 Limitations: no limitations HENMT: Head: Yes normal to inspection Ears: hearing grossly normal bilaterally General nose exam: Normal external nose present Face and sinus: Yes normal facial exam Mouth: Normal oral and palatal mucosa present Throat: Yes posterior oropharynx normal Eyes: General: appearance normal, both eyes and all related structures Pupils: Equal, round and reactive pupils present Neck: Neck: Yes normal visual inspection, Yes full ROM, Yes no lymphadenopathy, Yes no meningeal signs and No tender Chest: Chest palpation & inspection: normal inspection of the chest Resp: Effort & Inspection: normal respiratory effort Auscultation: clear to auscultation bilaterally Cardio: Rate: regular rate Rhythm: regular rhythm Peripheral pulses: Peripheral pulses 2+ throughout GI: Inspection: Yes normal to inspection Palpation (GI): Soft to palpation and nontender Auscultation: normal bowel sounds Back/Spine/Pelvis: Thoracic/Lumbar Spine: thoracic and lumbar spine normal to inspection Skin: General skin exam: no rashes or lesions noted Neuro: General: patient oriented x3, moves all extremities, no meningeal signs , no focal motor deficits and normal sensation to monofilament Cranial nerves: Yes CN's II-XII intact bilaterally, Yes Equal, round and reactive pupils present, Yes Bilaterally intact EOM present, Yes Nystagmus not present, Yes Normal facial strength present and Yes Midline tongue present Cognition (Neuro): normal cognition Speech: No Abnormal speech present Gait exam (Neuro): Normal gait present Motor exam (neuro): 5/5 motor strength present throughout Sensory Exam: Normal double simultaneous stimulation for sensation Deep tendon reflexes (DTR's): Right triceps reflex intensity grade: 2+, Left triceps reflex intensity grade: 2+, Rt Biceps (C5, C6): 2+, Left biceps reflex intensity grade: 2+, Right brachioradialis reflex intensity grade: 2+ and Left brachioradialis reflex intensity grade: 2+ Extrem: Other: there is tenderness over the entire shoulder and up to the neck on the right side with no obvious deformity, swelling or muscle spasm. When pressing over the trapezius and posterior shoulder I am able to reproduce the radiating pain down the right limb. Full range of motion of the shoulder. There is relief of pain with shoulder abduction. Pain is worsened with spurling maneuver Sensation is normal on exam of the right upper extremity. Neurovascularly intact distally with palpable radial and ulnar pulses. Reflexes are intact. General: Yes normal to inspection Course Course Course Narrative: 66 yo left handed male here with complaints of atraumatic pain in the RUE with paresthesias since 05/19 unrelieved With supportive care. Pain is worsened with the Spurling maneuver and relieved with shoulder abduction. likely cervical radiculopathy. Patient had recent visit to [facility] ER with extensive workup. Will attempt to obtain their medical records. In the meantime will check labs, EKG, provide analgesia 1300-improvement with . Unable to obtain records from [facility] x 3 attempts. I did explain this to the patient. His family did attempt to go home and find his medical records with her unable to do so. He is feeling in better after receiving a dose of morphine. His exam is consistent with a cervical radiculopathy. Plan for discharge home with course of prednisone. His magnesium is mildly decreased and this was repleted. Recommend he follow-up with his primary care doctor. I did review worrisome signs and symptoms with him such as weakness, weight loss, fevers and when to return to the emergency department. Comfortable discharge home. MDM - Extremity (Nontraumatic) MDM Narrative Medical decision making narrative: cervical radiculopathy less likely cord compression with no weakness on exam. Full range of motion of right upper extremity. Less likely infectious process with no history of being immunocompromised, IV drug abuse, no reports of fevers or chills. Medical Records Attestation: I reviewed the patient's medical records. Lab Data Attestation: I reviewed the patient's lab results. Result diagrams: 06/05/21 10:48 06/05/21 10:48 Labs: Lab Results 06/05/21 06/05/21 06/05/21 Range/Units 10:48 10:48 10:48 WBC 7.7 (4.8-10.8) X10*3/uL RBC 5.58 (4.60-5.80) X10*6/uL Hgb 14.3 (14.0-18.0) g/dl Hct 45.7 (42.0-52.0) % MCV 81.9 (80.0-98.0) fL MCH 25.6 L (27.0-33.0) pg MCHC 31.3 (31.0-36.0) g/dl RDW 14.3 (11.0-16.0) % Plt Count 216 (160-400) X10*3/uL MPV 10.3 (9.4-12.4) fL Immature Gran % (Auto) 0.3 (0.0-0.4) % Neut % (Auto) 70.8 (45-73) % Lymph % (Auto) 19.0 L (20-40) % Isabela % (Auto) 7.4 (2-11) % Eos % (Auto) 2.1 (0-4) % Baso % (Auto) 0.4 (0-2) % Lymph # (Auto) 1.5 (1.2-4.9) X10*3/uL Isabela # (Auto) 0.6 (0.1-1.2) X10*3/uL Eos # (Auto) 0.2 (0.0-0.4) X10*3/uL Baso # (Auto) 0.0 (0.0-0.2) X10*3/uL Abs Immat Gran (auto) 0.02 (0.00-0.03) X10*3/uL Absolute Neuts (auto) 5.5 (2.0-8.3) x10*3/uL Absolute Nucleated RBC 0.000 (0.0-0.012) X10*3/uL Nucleated RBC % (auto) 0.0 (0.0-0.2) /100WBC Sodium 137 (135-145) mmol/L Potassium 4.1 (3.3-5.1) mmol/L Chloride 105 (96-108) mmol/L Carbon Dioxide 24 (22-29) mmol/L Anion Gap 12 (12-20) BUN 10 (9-16) mg/dL Creatinine 0.93 (0.5-1.4) mg/dL Estim Creat Clear Calc 74.3 Estimated GFR > 60 Random Glucose 201 H D (60-115) mg/dL Calcium 9.7 D (8.4-10.2) mg/dL Magnesium (1.6-2.6) mg/dL Total Bilirubin 1.0 (0.0-1.0) mg/dL AST 13 (5-37) U/L ALT 16 (0-40) U/L Alkaline Phosphatase 90 (39-117) U/L Troponin I High Sens 5.4 (<3.5-35.0) ng/L Total Protein 7.6 (6.5-8.0) g/dL Albumin 4.3 (3.5-5.0) g/dL 06/05/21 Range/Units 12:34 WBC (4.8-10.8) X10*3/uL RBC (4.60-5.80) X10*6/uL Hgb (14.0-18.0) g/dl Hct (42.0-52.0) % MCV (80.0-98.0) fL MCH (27.0-33.0) pg MCHC (31.0-36.0) g/dl RDW (11.0-16.0) % Plt Count (160-400) X10*3/uL MPV (9.4-12.4) fL Immature Gran % (Auto) (0.0-0.4) % Neut % (Auto) (45-73) % Lymph % (Auto) (20-40) % Isabela % (Auto) (2-11) % Eos % (Auto) (0-4) % Baso % (Auto) (0-2) % Lymph # (Auto) (1.2-4.9) X10*3/uL Isabela # (Auto) (0.1-1.2) X10*3/uL Eos # (Auto) (0.0-0.4) X10*3/uL Baso # (Auto) (0.0-0.2) X10*3/uL Abs Immat Gran (auto) (0.00-0.03) X10*3/uL Absolute Neuts (auto) (2.0-8.3) x10*3/uL Absolute Nucleated RBC (0.0-0.012) X10*3/uL Nucleated RBC % (auto) (0.0-0.2) /100WBC Sodium (135-145) mmol/L Potassium (3.3-5.1) mmol/L Chloride (96-108) mmol/L Carbon Dioxide (22-29) mmol/L Anion Gap (12-20) BUN (9-16) mg/dL Creatinine (0.5-1.4) mg/dL Estim Creat Clear Calc Estimated GFR Random Glucose (60-115) mg/dL Calcium (8.4-10.2) mg/dL Magnesium 1.5 L (1.6-2.6) mg/dL Total Bilirubin (0.0-1.0) mg/dL AST (5-37) U/L ALT (0-40) U/L Alkaline Phosphatase (39-117) U/L Troponin I High Sens (<3.5-35.0) ng/L Total Protein (6.5-8.0) g/dL Albumin (3.5-5.0) g/dL ECG Data Attestation EKG: I personally reviewed and interpreted this ECG as follows: ECG interpretation date: 06/05/21 ECG interpretation time: 10:33 Interpretation: Normal sinus rhythm with a rate of 63, normal CT, normal QRS, nonspecific ST changes unchanged from EKG 08/21/2020 Discharge Plan Discharge Clinical Impression: Cervical radiculopathy, Hypomagnesemia Patient Disposition: Home, Self-Care Instructions: Cervical Radiculopathy (ED), Hypomagnesemia (ED) Additional Instructions: your exam is consistent with a cervical radiculopathy which is a pinched nerve that comes off the cervical spine. The treatment is trying to alleviate some of the pressure placed on the nerve. We are starting you on prednisone. Your next dose of prednisone is tomorrow. you may take the pain medication as needed gentle stretching, heat or ice. Follow up with her primary care doctor as scheduled. You will likely need an MRI of your neck to take a closer look. Return here for any weakness or fever and we would consider at that time doing the MRI of your neck. your magnesium level was low and we replaced this today. Eat a diet rich in magnesium Prescriptions: New prednisone 20 mg tablet 40 mg PO DAILY Qty: 8 0RF morphine 15 mg tablet 15 mg PO BID PRN (Reason: pain) Qty: 10 0RF magnesium oxide 400 mg (241.3 mg magnesium) tablet 400 mg PO DAILY Qty: 30 0RF No Action doxycycline monohydrate 100 mg capsule 100 mg PO BID 10 Days Qty: 20 0RF cephalexin [Keflex] 500 mg capsule 500 mg PO Q6H 10 Days Qty: 40 0RF oxycodone-acetaminophen [Percocet] 5-325 mg tablet 1 tab PO Q6H PRN (Reason: pain) Qty: 15 0RF Rx Instructions: Can be partially filled Referrals: Physician,Unknown J [Primary Care Provider] - 1 week (as scheduled end of this month )
[2021-06-05 13:04] LABS: Magnesium 1.5 mg/dL (1.6-2.6)
[2021-06-05] MEDS: Magnesium Oxide 400 MG TABLET 800 MG PO (13:40)
[2021-06-05] MEDS: predniSONE 20 MG TABLET 60 MG PO (13:40)
[2021-06-05 14:03] VITALS: PULSE 100; RESP 16; O2SAT 97
== END 2021-06-05 14:05 | disposition home or self-care (01) ==
PROVIDERS: Nurse Practitioner Family; Emergency Provider Emergency Medicine
DX: M54.12 Radiculopathy, cervical region (principal); E83.42 Hypomagnesemia; E11.40 Type 2 diabetes mellitus with diabetic neuropathy, unspecified; I11.0 Hypertensive heart disease with heart failure; I50.30 Unspecified diastolic (congestive) heart failure; I82.402 Acute embolism and thrombosis of unspecified deep veins of left lower extremity; Z79.01 Long term (current) use of anticoagulants; Z79.899 Other long term (current) drug therapy; Z95.1 Presence of aortocoronary bypass graft; Z90.5 Acquired absence of kidney
CPT/HCPCS: 36415; 80053; 83735; 84484; 85025; 93005; 96372; 99284; J2270

== ENCOUNTER 2021-10-14 06:25 | Emergency (ER) | payer BC, MEDICARE, SELFPAY ==
[2021-10-14 07:46] VITALS: BP 179/88; PULSE 78; RESP 14; TEMP 36.5; O2SAT 96; BMI 29.0
--- NOTE | 2021-10-14 08:35 | PC.NURSE ---
PT CALLED INTO [facility] X 2 WITH NO ANSWER IN WAITING ROOM
== END 2021-10-14 08:46 | disposition left against medical advice (07) ==
LOC: HO.ED 08:47
PROVIDERS: Emergency Provider Emergency Medicine; PCP Internal Medicine
DX: M79.601 Pain in right arm (principal)
CPT/HCPCS: 99281